=== PATIENT | male | born 1995 | race African-American/Black ===

== ENCOUNTER 2019-12-17 12:53 | Emergency (ER) | payer OTHER ==
[~2019-12-17] VITALS: Ht 182.9 cm; Wt 83.9 kg
[~2019-12-17 12:53] MED LIST: ADVAIR 500-501 EACH INH; MONTELUKAST SOD10 MG PO; PREDNISONE10 M2 PO; PREDNISONE20 MG ORAL; VENTOLIN HFA18 GM INH; ZITHROMAX500 MG ORAL
[2019-12-17] MEDS: Albuterol/Ipratropium 3ml neb HHN SCH ×2 (13:00→13:01)
[2019-12-17 13:09] VITALS: BP 122/81
--- NOTE | 2019-12-17 14:00 | Diagnostic Imaging Report ---
EXAM: XR Chest, 1 View CLINICAL HISTORY: COUGH TECHNIQUE: Frontal view of the chest. COMPARISON: Chest x-ray 09/22/15 FINDINGS: Lungs: Subtle nodular densities in bilateral lower lung zones, likely resenting nipple shadows. The lungs are otherwise clear. Pleural space: Unremarkable. The costophrenic angles are sharp. No visible pneumothorax. Heart: Unremarkable. No cardiomegaly. Mediastinum: Unremarkable. Bones/joints: Unremarkable. Tubes, lines and devices: Telemetry leads overlie the thorax. IMPRESSION: Subtle nodular densities in bilateral lower lung zones, likely resenting nipple shadows. The lungs are otherwise clear.
--- NOTE | 2019-12-17 14:03 | Emergency Room Report ---
History of Present Illness General Chief Complaint: Asthma Source: Patient Present Illness HPI 24-year-old male with history of asthma brought in by guidance director due to asthma exacerbation. Patient reports that he has been staying home for the past few days, denies any cough and congestion. Reports that this morning he noticed that his asthma is exacerbating making him hard to breathe. Denies any chest pain chest pain radiation. Denies recent travel, fever and chills, coming contact with above travel. Denies tobacco smoke and drug use. Other than Ventolin has not taken any other medication. Sitting comfortably with stable vital signs. COVID-19 risk:Travel to affect: No Has patient experienced herring: No Allergies: Coded Allergies: INFLUENZA VIRUS VACCINES (Verified Allergy, Intermediate, 09/23/15) EGG (Unverified Allergy, Unknown, 08/27/14) Uncoded Allergies: FLU SHOT (Allergy, Intermediate, 09/22/15) EGGS (Allergy, Unknown, 12/17/19) FLU VACCINE (Allergy, Unknown, 12/17/19) NUTS (Allergy, Unknown, 12/17/19) SEAFOOD+ (Allergy, Unknown, 12/17/19) nuts (Allergy, Unknown, 08/27/14) seafood (Allergy, Unknown, 08/27/14) Patient History Past Medical History: see triage record Past Surgical History: none Pertinent Family History: none Immunizations: UTD Reviewed Nursing Documentation: PMH: Agreed; PSxH: Agreed Nursing Documentation-PMH Past Medical History: No History, Except For Hx Asthma: Yes Hx Cancer: No Hx Gastrointestinal Problems: No Hx Neurological Problems: No Review of Systems All Other Systems: negative except mentioned in HPI Physical Exam Vital Signs Date Time Temp Pulse Resp B/P (MAP) Pulse Ox O2 Delivery O2 Flow Rate FiO2 12/17/19 12:48 109 30 124/84 (97) 100 Room Air 12/17/19 13:09 99 12/17/19 13:09 98.6 Sp02 EP Interpretation: reviewed, normal General Appearance: no apparent distress, alert, GCS 15, non-toxic Head: normocephalic, atraumatic Eyes: bilateral eye normal inspection, bilateral eye PERRL ENT: hearing grossly normal, normal pharynx, no angioedema, normal voice Neck: full range of motion, supple, thyroid normal, supple/symm/no masses Respiratory: chest non-tender, lungs clear, normal breath sounds, no rhonchi, no wheezing, speaking full sentences Cardiovascular #1: regular rate, rhythm, no edema, no murmur Gastrointestinal: non tender, soft Rectal: deferred Genitourinary: normal inspection, no CVA tenderness Musculoskeletal: back normal, no calf tenderness Neurologic: alert, motor strength/tone normal, oriented x3, sensory intact, responsive, speech normal Psychiatric: judgement/insight normal, memory normal, mood/affect normal, no suicidal/homicidal ideation Skin: no rash Lymphatic: no adenopathy Medical Decision Making PA Attestation All my diagnosis and treatment plans were reviewed ad discussed with my supervising physician Dr. Martinez Diagnostic Impression: Primary Impression: Asthma exacerbation ER Course 24-year-old male with history of asthma brought in by guidance director due to asthma exacerbation. Patient reports that he has been staying home for the past few days, denies any cough and congestion. Reports that this morning he noticed that his asthma is exacerbating making him hard to breathe. Denies any chest pain chest pain radiation. Denies recent travel, fever and chills, coming contact with above travel. Denies tobacco smoke and drug use. Other than Ventolin has not taken any other medication. Sitting comfortably with stable vital signs. Ddx considered but are not limited to: bronchitis, PNA, URI viral, bacterial bronchitis, asthma exacerbation Vital signs: are WNL, pt. is afebrile H&PE are most consistent with: Asthma exacerbation ORDERS: Chest x-ray, influenza swab, albuterol inhaler, prednisone ED INTERVENTIONS: Prednisone p.o., albuterol ipratropium nebulizer treatment DISCHARGE: At this time pt. is stable for d/c to home. Will provide printed patient care instructions, and any necessary prescriptions. Care plan and follow up instructions have been discussed with the patient prior to discharge. Patient take medication as directed, follow-up primary care provider, if worsening symptoms return to emergency room Chest X-Ray Diagnostic Results Chest X-Ray Diagnostic Results : Chest X-Ray Ordered: Yes # of Views/Limited/Complete: 1 View Indication: Shortness of Breath EP Interpretation: Yes VALENTE Xray: Interpretation reviewed, by supervising MD, and agrees with findings. Interpretation: no consolidation, no effusion, no pneumothorax Impression: No acute disease Electronically Signed by: Ernesto Pickard PA-C Last Vital Signs Date Time Temp Pulse Resp B/P (MAP) Pulse Ox O2 Delivery O2 Flow Rate FiO2 12/17/19 13:09 98.6 122 27 122/81 100 Room Air 12/17/19 13:09 99 Disposition: HOME, SELF-CARE Condition: Stable Scripts Prednisone* (PREDNISONE*) 20 Mg Tablet 40 MG ORAL DAILY for 5 Days, #10 TAB Prov: Ernesto Thakkar 12/17/19 Albuterol Sulfate (VENTOLIN HFA) 18 Gm Hfa.aer.ad 2 PUFFS INH EVERY 6 HOURS, #18 GM 0 Refills Prov: Ernesto Thakkar 12/17/19 Patient Instructions: Asthma, Adult Additional Instructions: Take medication as directed, follow-up primary care provider, increase oral hydration if worsening symptoms return to emergency room Ernesto Thakkar Dec 17, 2019 14:03
[2019-12-17] MEDS ORDERED: VENTOLIN HFA18 GM INH (14:05)
[2019-12-17] MEDS ORDERED: PREDNISONE20 MG ORAL (14:05)
[2019-12-17 14:27] VITALS: BP 120/80
== END 2019-12-17 14:27 | disposition home or self-care (01) ==
LOC: EDBD 12:53 → EMR 14:00
DX: J45.901 Unspecified asthma with (acute) exacerbation (principal); Z91.012 Allergy to eggs; Z91.018 Allergy to other foods; Z91.013 Allergy to seafood
CPT/HCPCS: 71045; 86710; J7512; Z7502; 99283; J7620

== ENCOUNTER 2020-02-19 08:10 | Emergency (ER) | payer OTHER ==
[~2020-02-19] VITALS: Ht 185.4 cm; Wt 86.2 kg
--- NOTE | 2020-02-19 08:14 | NUR ---
ED Nurse Note: Pt ambulated to ed c/o "asthma attack" since this morning. pt states that he ran out of his medication. pt presents with expiratory wheezes. pt O2 stat 92% but pt shows no acute distress.
[2020-02-19] MEDS: Albuterol ud Inhalation HHN SCH ×5 (08:15→09:12)
[2020-02-19] MEDS: Ipratropium 0.02% Inh Soln 2.5ml UD HHN SCH ×5 (08:15→09:12)
[2020-02-19 08:19] VITALS: BP 148/85
[2020-02-19] MEDS ORDERED: ALBUTEROL SULF8.5 G1 INH (08:21)
--- NOTE | 2020-02-19 08:21 | Emergency Room Report ---
History of Present Illness General Chief Complaint: Asthma Source: Patient, Medical Record Present Illness HPI 25-year-old male history of eczema history of asthma presents with acute shortness of breath that started today patient reports he has been without his inhaler for a week he ran out, no chest pain he does endorse chest tightness aggravated by his asthma, alleviated by albuterol, severity is moderate, constant no fevers chills cough congestion, abdominal pain Allergies: Coded Allergies: INFLUENZA VIRUS VACCINES (Verified Allergy, Intermediate, 09/23/15) EGG (Unverified Allergy, Unknown, 08/27/14) Uncoded Allergies: FLU SHOT (Allergy, Intermediate, 09/22/15) EGGS (Allergy, Unknown, 12/17/19) FLU VACCINE (Allergy, Unknown, 12/17/19) NUTS (Allergy, Unknown, 12/17/19) SEAFOOD+ (Allergy, Unknown, 12/17/19) nuts (Allergy, Unknown, 08/27/14) seafood (Allergy, Unknown, 08/27/14) COVID-19 Screening Experienced COVID-19 symptoms?: No Patient History Past Medical History: see triage record Reviewed Nursing Documentation: PMH: Agreed; PSxH: Agreed Nursing Documentation-PMH Past Medical History: No History, Except For Hx Asthma: Yes Hx Cancer: No Hx Gastrointestinal Problems: No Hx Neurological Problems: No Review of Systems All Other Systems: negative except mentioned in HPI Physical Exam Sp02 EP Interpretation: reviewed, abnormal - Hypoxic SPO2 92 General Appearance: well appearing, no apparent distress, alert Head: normocephalic, atraumatic Eyes: bilateral eye PERRL, bilateral eye EOMI ENT: uvula midline, moist mucus membranes Neck: supple, thyroid normal, supple/symm/no masses Respiratory: accessory muscle use, wheezing Cardiovascular #1: normal peripheral pulses, regular rate, rhythm, no edema, no gallop, no murmur Gastrointestinal: non tender, soft, no guarding, no rebound Musculoskeletal: normal inspection Neurologic: alert, oriented x3 Psychiatric: mood/affect normal Skin: no rash, warm/dry Medical Decision Making Diagnostic Impression: Primary Impression: Asthma exacerbation Qualified Codes: J45.41 - Moderate persistent asthma with (acute) exacerbation ER Course 25-year-old male presents with chest tightness, shortness of breath differential diagnosis includes asthma attack, pneumonia pneumothorax, Patient given duo nebs 6 rounds, prednisone Patient felt better disposition home with return precautions follow-up with PCP refill of albuterol was given Disposition: HOME, SELF-CARE Condition: Stable Scripts Prednisone* (PREDNISONE*) 50 Mg Tablet 50 MG ORAL DAILY, #4 TAB 0 Refills Prov: Tomas Larkin MD 02/19/20 Referrals: [facility] Patient Instructions: Asthma, Adult Additional Instructions: The patient was provided with discharge instructions, notified to follow-up with a primary care doctor and or specialist in the next 24-48 hours, and to return to the ED if they have worsening of their symptoms. Please note that this report is being documented using [employer] technology. This can lead to erroneous entry secondary to incorrect interpretation by the dictating instrument. Tomas Larkin MD February 19, 2020 08:21
--- NOTE | 2020-02-19 08:32 | NUR ---
ED Nurse Note: Respiratory therapist at bedside with pt for breathing treatment
[2020-02-19] MEDS ORDERED: PREDNISONE50 MG ORAL (09:10)
--- NOTE | 2020-02-19 09:40 | NUR ---
ED Nurse Note: reassessed lungs post breathing treament. bilateral lung almaraz clear. no audible wheezes.
[2020-02-19 09:43] VITALS: BP 135/89
--- NOTE | 2020-02-19 09:43 | NUR ---
ER DISCHARGE NOTE: Patient is cleared to be discharged per ERMD, pt is aox4, on room air, with stable vital signs. pt was given dc and prescription instructions, pt was able to verbalize understanding, pt id band removed. pt is able to ambulate with steady gait. pt took all belongings.
== END 2020-02-19 09:43 | disposition home or self-care (01) ==
LOC: EMR 08:18
DX: J45.41 Moderate persistent asthma with (acute) exacerbation (principal); Z91.012 Allergy to eggs; Z91.018 Allergy to other foods; Z91.013 Allergy to seafood
CPT/HCPCS: J7512; Z7502; 99284

== ENCOUNTER 2020-11-15 12:51 | Emergency (ER) | payer OTHER ==
[~2020-11-15] VITALS: Ht 185.4 cm; Wt 86.2 kg
[~2020-11-15 12:51] MED LIST changes: +ALBUTEROL SULF8.5 G1 INH; +PREDNISONE50 MG ORAL
--- NOTE | 2020-11-15 13:18 | NUR ---
ED Nurse Note:urine sent to labs
--- NOTE | 2020-11-15 13:20 | Emergency Room Report ---
History of Present Illness General Chief Complaint: Male Urogenital Problems Source: Patient Present Illness HPI Patient presents with dysuria and hematuria. Was worse yesterday. Has been going on 3 days. He has had urinary tract infections. He denies sexually contacts. The patient denies fevers or chills. He denies any back pain. There is no testicular pain or prostate or rectal pain. He is not passing any clots. Patient has eczema and was taking clobetasol. This was stopped due to insurance. He has been using triamcinolone which has not been working well for him. Patient denies exposure to Covid positive contacts. No sore throat, chest pain, palpitations, nausea, vomiting, diarrhea, abdominal pain, shortness of breath, joint pain, depression, anxiety, visual changes, diz ziness, headache. The patient has a history of asthma and has been admitted several times for status asthmaticus. He denies wheezing at this time. Allergies: Coded Allergies: INFLUENZA VIRUS VACCINES (Verified Allergy, Intermediate, 09/23/15) EGG (Unverified Allergy, Unknown, 08/27/14) Uncoded Allergies: FLU SHOT (Allergy, Intermediate, 09/22/15) EGGS (Allergy, Unknown, 12/17/19) FLU VACCINE (Allergy, Unknown, 12/17/19) NUTS (Allergy, Unknown, 12/17/19) SEAFOOD+ (Allergy, Unknown, 12/17/19) nuts (Allergy, Unknown, 08/27/14) seafood (Allergy, Unknown, 08/27/14) COVID-19 Screening Contact w/high risk pt: No Recent Travel to affected area: No Experienced COVID-19 symptoms?: No COVID-19 Testing performed SENIOR COMPENSATION CONSULTANT: No Patient History Past Medical History: see triage record, asthma, other - Eczema Social History: Reports: drug use - THC; Denies: smoking Social History Narrative Unemployed Reviewed Nursing Documentation: PMH: Agreed; PSxH: Agreed Nursing Documentation-PMH Past Medical History: No History, Except For Hx Asthma: Yes Hx Cancer: No Hx Gastrointestinal Problems: No Hx Neurological Problems: No Review of Systems All Other Systems: negative except mentioned in HPI Physical Exam Vital Signs Date Time Temp Pulse Resp B/P (MAP) Pulse Ox O2 Delivery O2 Flow Rate FiO2 11/15/20 12:57 98.4 87 17 113/72 (86) 98 Room Air Sp02 EP Interpretation: reviewed, normal General Appearance: well appearing, no apparent distress, GCS 15 Head: normocephalic Eyes: bilateral eye normal inspection, bilateral eye PERRL, bilateral eye EOMI ENT: other - Wearing a mask Neck: normal inspection Cardiovascular #1: regular rate, rhythm Gastrointestinal: normal inspection Genitourinary: no CVA tenderness, deferred - For urinalysis Musculoskeletal: gait/station normal Neurologic: alert, grossly normal Psychiatric: mood/affect normal Skin: warm/dry, other - Eczema of hands Medical Decision Making Diagnostic Impression: Primary Impression: UTI (urinary tract infection) Qualified Codes: N30.01 - Acute cystitis with hematuria Additional Impression: Eczema Qualified Codes: L20.84 - Intrinsic (allergic) eczema ER Course Patient with a history of eczema presents with dysuria and hematuria. Differential includes urinary tract infection, prostatitis, hematuria amongst others. Urinalysis indicated. Patient is nontoxic at this time and labs are not indicated. Patient given Tylenol. Urinalysis with pyuria and minimal hematuria. Patient given dose of Keflex. Discussed findings with patient. Did discuss the need for outpatient follow-up. Also discussed treatment plan. Patient stable for outpatient observation and treatment. Laboratory Tests Test 11/15/20 13:10 Urine Color Yellow Urine Appearance Cloudy Urine pH 8 (4.5-8.0) Urine Specific Energy 1.010 (1.005-1.035) Urine Protein 3+ (NEGATIVE) H Urine Glucose (UA) Negative (NEGATIVE) Urine Ketones Negative (NEGATIVE) Urine Blood 5+ (NEGATIVE) H Urine Nitrite Negative (NEGATIVE) Urine Bilirubin Negative (NEGATIVE) Urine Urobilinogen 1 MG/DL (0.0-1.0) H Urine Leukocyte Esterase 3+ (NEGATIVE) H Urine RBC 30-40 /HPF (0 - 0) H Urine WBC Tntc /HPF (0 - 0) H Urine Squamous Epithelial Cells Occasional /LPF Urine Bacteria Occasional /HPF (NONE) Chlamydia trachomatis RNA Pending Neisseria gonorrhoeae RNA Pending Last Vital Signs Date Time Temp Pulse Resp B/P (MAP) Pulse Ox O2 Delivery O2 Flow Rate FiO2 11/15/20 14:03 98.4 17 113/72 98 Room Air 11/15/20 12:57 87 Status: improved Disposition: HOME, SELF-CARE Condition: Improved Scripts Clobetasol Propionate (Clobetasol Propionate) 15 Gm Oint...g. 1 APPLIC TOP TWICE A DAY, #90 GM Prov: Charlie Byrne MD 11/15/20 Phenazopyridine Hcl* (PYRIDIUM*) 200 Mg Tablet 200 MG ORAL THREE TIMES A DAY PRN for dysuria, #9 TAB 0 Refills Prov: Charlie Byrne MD 11/15/20 Cephalexin* (KEFLEX*) 500 Mg Capsule 500 MG ORAL EVERY 6 HOURS, #28 CAP Prov: Charlie Byrne MD 11/15/20 Charlie Byrne MD Nov 15, 2020 13:20
[2020-11-15] MEDS ORDERED: Acetaminophen 500mg (ES) tab ORAL ONE (13:30)
--- NOTE | 2020-11-15 13:54 | NUR ---
ED Nurse Note:offered to give pt the tylenol that was ordered. he stated he doesn't really need it right now.
[2020-11-15 13:58] LABS: APPEARANCE,URINE CLOUDY; BILIRUBIN, URINE NEGATIVE (NEGATIVE); GLUCOSE, URINE (UA) NEGATIVE (NEGATIVE); KETONES,URINE NEGATIVE (NEGATIVE); LEUKOCYTE ESTERASE ,URINE 3+ (NEGATIVE); NITRITE,URINE NEGATIVE (NEGATIVE); PH,URINE 8 (4.5-8.0); PROTEIN,URINE 3+ (NEGATIVE); UROBILINOGEN,URINE 1 MG/DL (0.0-1.0)
[2020-11-15 13:59] LABS: COLOR,URINE YELLOW
[2020-11-15 14:03] VITALS: BP 113/72
[2020-11-15] MEDS ORDERED: TEMOVATE15 GM TOP (14:28)
[2020-11-15] MEDS ORDERED: PHENAZOPYRIDIN200 MG ORAL (14:28)
[2020-11-15] MEDS ORDERED: CEPHALEXIN500 MG ORAL (14:28)
[2020-11-15] MEDS ORDERED: Cephalexin 500mg cap ORAL ONE (14:30)
--- NOTE | 2020-11-15 14:35 | NUR ---
ER DISCHARGE NOTE: Patient is cleared to be discharged per ERMD, pt is aox4, on room air, with stable vital signs. pt was given dc and prescription instructions, pt was able to verbalize understanding. pt is able to ambulate with steady gait. pt took all belongings.
--- NOTE | 2020-11-15 14:42 | NUR ---
ED Nurse Note:pt anxious to get out of the ER, gave him paperwork and rx. didn't want to wait for meds
--- NOTE | 2020-11-15 14:43 | NUR ---
ER DISCHARGE NOTE: Patient is cleared to be discharged per ERMD, pt is aox4, on room air, with stable vital signs. pt was given dc and prescription instructions, pt was able to verbalize understanding. pt frustrated that he had to wait and that we didn't listen to him. he stated he knew he had a uti. attempted to explain process to pt. pt kept making sighing noises while sitting near this RN. pt is able to ambulate with steady gait. pt took all belongings.
== END 2020-11-15 14:35 | disposition home or self-care (01) ==
LOC: EMR 13:42
DX: N30.01 Acute cystitis with hematuria (principal); L20.84 Intrinsic (allergic) eczema; J45.909 Unspecified asthma, uncomplicated; Z79.899 Other long term (current) drug therapy; Z88.7 Allergy status to serum and vaccine; Z91.012 Allergy to eggs; Z91.018 Allergy to other foods; Z91.013 Allergy to seafood
CPT/HCPCS: 81003; 87086; 87491; 87590; Z7502; 99283